=== PATIENT | female | born 1990 | race Two or more races ===

== ENCOUNTER 2023-08-29 20:50 | Emergency (ER) | payer SELFPAY ==
[~2023-08-29] VITALS: Ht 165.1 cm; Wt 75.0 kg
[2023-08-29 20:50] VITALS: PULSE 0; RESP 0
[2023-08-29] MEDS ORDERED: EPINEPHrine HCL 1 MG/10 ML SYRG ONE (21:14)
[2023-08-29] MEDS ORDERED: SODIUM BICARBONATE 8.4% INJ 50ML SYRINGE ONE (21:14)
[2023-08-29 21:28] VITALS: BP 0/0; PULSE 0; RESP 0; O2SAT 0
== END 2023-08-30 01:16 ==
LOC: EDSEX 20:50 → EDBD 20:50 → ER 20:50
DX: T14.90XA Injury, unspecified, initial encounter (principal); I46.9 Cardiac arrest, cause unspecified; V29.498A Other motorcycle driver injured in collision with other motor vehicles in traffic accident, initial encounter; Y93.89 Activity, other specified; Y92.89 Other specified places as the place of occurrence of the external cause; Y99.8 Other external cause status
CPT/HCPCS: 31500; 92950; 99285; J0171